=== PATIENT | male | born 1990 | race Caucasian/White ===

== ENCOUNTER 2020-05-24 17:42 | Emergency (ER) | payer SELFPAY ==
[~2020-05-24] VITALS: Ht 180.3 cm; Wt 80.0 kg
[2020-05-24 19:15] VITALS: BP 124/84
== END 2020-05-24 19:16 | disposition home or self-care (01) ==
LOC: ER 17:42
DX: U07.1 COVID-19 (principal); J06.9 Acute upper respiratory infection, unspecified; I10 Essential (primary) hypertension; F17.200 Nicotine dependence, unspecified, uncomplicated
CPT/HCPCS: 71045; 99284; C9803; U0003